=== PATIENT | female | born 1925 ===

== ENCOUNTER 2016-10-21 12:33 | Outpatient (CLI) | payer MEDICARE ==
--- NOTE | 2016-10-22 11:10 | Magnetic Resonance Report ---
MRI LUMBAR SPINE WITHOUT CONTRAST: 10/21/16 CLINICAL: Lower back pain. Spinal stenosis. No comparison. TECHNIQUE: Sagittal and axial T1 and T2, and sagittal STIR sequences on a 1.5 Raquel magnet. FINDINGS: Moderate levoscoliosis centered at L2-3. Grade I L2-3 retrolisthesis and grade I L2-3 left lateral listhesis. Grade I L4-5 anterolisthesis. Mild midwedge compression deformity of T12. The rest of the bodies are normal in height. The overall marrow signal is normal. The conus medullaris is normal and terminates at L1-2. L2-3 disc space narrowing and type I Modic endplate changes. L1-2: Mild circumferential disc bulge and prominent anterior disc protrusion with large anterior osteophytes. L2-3: Degeneration of the disc and a moderate-sized broad-based left paracentral and left foraminal disc protrusion. Moderate narrowing of the central canal and the left anterior recess. Moderate left neural foraminal narrowing. L3-4: Mild circumferential bulge of the disc. Mild bilateral facet hypertrophy and mild bilateral neural foraminal narrowing. L4-5: Moderate circumferential disc bulge and a broad-based left paracentral left foraminal disc protrusion. Left facet hypertrophy and marked narrowing of the left neural foramen. Moderate narrowing of the right neural foramen. Bilaterally minimal flavum hypertrophy and moderate central canal stenosis. L5-S1: Large circumferential disc bulge and broad-based central disc protrusion. Mild central canal stenosis and moderate bilateral neural foraminal stenosis. IMPRESSION: Scoliosis and multilevel degenerative disc disease as described above. Spondylolisthesis at L2-3 and L4-5.
== END 2016-10-21 12:34 | disposition home or self-care (01) ==
LOC: SPVIMAG 12:33
PROVIDERS: ATTEND Internal Medicine
DX: M48.06 Spinal stenosis, lumbar region (principal); M51.26 Other intervertebral disc displacement, lumbar region; M51.36 Other intervertebral disc degeneration, lumbar region; M41.86 Other forms of scoliosis, lumbar region; M25.78 Osteophyte, vertebrae; M43.16 Spondylolisthesis, lumbar region
CPT/HCPCS: 72148